=== PATIENT | male | born 1980 | race Caucasian/White ===

== ENCOUNTER 2016-11-17 23:05 | Emergency (ER) | payer SELFPAY ==
[2016-11-17 23:18] VITALS: BP 137/94; PULSE 83; TEMP 97.7; BMI 25.6
--- NOTE | 2016-11-18 00:09 | PDOC ---
History of Present Illness - General History Source: Patient, Dam Tender Assistant Used Exam Limitations: Language Barrier - History of Present Illness Initial Comments: 11/18/16 23:35 The patient is a 36 year old male, with no significant past medical history, who presents to the emergency department with epigastric stomach pain for approx. two months that felt progressively worse today s/p lifting at work. The patient describes the pain as mild when not moving or lifting and moderate with exertion. The patient reports taking natural herbal medications for the pain and reports mild relief. He denies any recent chest pain or shortness of breath. He denies any recent fevers, chills, headache or dizziness. He denies any recent nausea, vomit, diarrhea or constipation. Allergies: NKA Past surgical history: None reported. Social History: Nonsmoker. Denies EtOH use (patient reports stopping alcohol use approx. one year ago). Denies recreational drug use. Primary Care Physician: Patient states he does not have a PCP <Ramana Casey - Last Filed: 11/18/16 01:07> <Graeme Carias - Last Filed: 11/18/16 02:15> - General Chief Complaint: Pain Stated Complaint: ABD PAIN Time Seen by Provider: 11/17/16 23:35 Past History <Ramana Caesy - Last Filed: 11/18/16 01:07> - Psycho/Social/Smoking Cessation Hx Anxiety: No Suicidal Ideation: No Smoking History: Never smoked Have you smoked in the past 12 months: No Information on smoking cessation initiated: No Hx Alcohol Use: No Drug/Substance Use Hx: No Substance Use Type: None <Graeme Carias - Last Filed: 11/18/16 02:15> - Past Medical History Allergies/Adverse Reactions: Allergies Allergy/AdvReac Type Severity Reaction Status Date / Time No Known Allergies Allergy Verified 06/15/15 22:31 Home Medications: Ambulatory Orders NK [No Known Home Medication] 11/18/16 Review of Systems - Review of Systems Comments:: 11/18/16 23:35 CONSTITUTIONAL: No fever, no chills, no fatigue EYES: No visual changes ENT: No ear pain, no sore throat CARDIOVASCULAR: No chest pain, no palpitations RESPIRATORY: No cough, no SOB GI: +Epigastric pain. No nausea, no vomiting, no constipation, no diarrhea GENITOURINARY: No dysuria, no frequency, no hematuria MUSKULOSKELETAL: No backpain, no joint pain, no myalgias SKIN: No rash NEURO: No headache <Ramana Casey - Last Filed: 11/18/16 01:07> *Physical Exam - Vital Signs Last Vital Signs Temp Pulse Resp BP Pulse Ox 97.7 F 83 18 137/94 97 11/17/16 23:15 11/17/16 23:15 11/17/16 23:15 11/17/16 23:15 11/17/16 23:15 - Physical Exam Comments: 11/18/16 23:35 CONSTITUTIONAL: Well-appearing; well-nourished; in no apparent distress HEAD: Normocephalic; atraumatic EYES: PERRL; EOM intact ENMT: External appears normal; normal oropharynx NECK: Supple; non-tender; no cervical lymphadenopathy CARD: Normal S1, S2; no murmurs, rubs, or gallops RESP: Normal chest excursion with respiration; breath sounds clear and equal bilaterally; no wheezes, rhonchi, or rales ABD: +Right upper quadrant tenderness. +Mild epigastric pain. EXT: Normal ROM in all four extremities; non-tender to palpation; distal pulses intact SKIN: Warm, dry, no rash NEURO: No focal neurological deficiencies. <Ramana Casey - Last Filed: 11/18/16 01:07> - Vital Signs Last Vital Signs Temp Pulse Resp BP Pulse Ox 97.7 F 83 18 137/94 97 11/17/16 23:15 11/17/16 23:15 11/17/16 23:15 11/17/16 23:15 11/17/16 23:15 <Graeme Carias - Last Filed: 11/18/16 02:15> ED Treatment Course - LABORATORY CBC & Chemistry Diagram: 11/18/16 01:05 11/18/16 01:05 <Graeme Carias - Last Filed: 11/18/16 02:15> Medical Decision Making - Medical Decision Making 11/18/16 02:13 Patient is well-appearing 36-year-old male who presents with atraumatic epigastric and right upper quadrant pain for the past several months that is exacerbated by heavy lifting and relieved by herbal supplements. In the ER, patient is awake and alert, with minimal epigastric discomfort on deep palpation. Miles's sign is negative. Vital signs are normal and stable. Patient is afebrile. CBC/CMP/lipase are within normal limit. Patient is completely asymptomatic after administration of Zantac and Maalox. I do not suspect pancreatitis or acute cholecystitis. Patient will be discharged with medical clinic follow-up and Zantac by mouth twice a day for the next 2 weeks. <Graeme Carias - Last Filed: 11/18/16 02:15> *DC/Admit/Observation/Transfer - Attestations Scribe Attestion: 11/18/16 01:19 Documentation prepared by Ramana Casey, acting as medical accounts receivable specialist for Graeme Carias MD. <Ramana Casey - Last Filed: 11/18/16 01:07> - Attestations Physician Attestion: 11/18/16 02:12 The documentation was prepared by the scribe under my direct supervision. I have reviewed the documentation which correctly represents the findings, medical decision-making and critical action taken by me. <Graeme Carias - Last Filed: 11/18/16 02:15> Diagnosis at time of Disposition: Abdominal pain Qualifiers: Abdominal location: epigastric Qualified Code(s): R10.13 - Epigastric pain - Discharge Dispostion Disposition: HOME Condition at time of disposition: Stable - Referrals Referrals: [facility] [Provider Group] - Patient Instructions Printed Discharge Instructions: DI for Epigastric Pain Additional Instructions: Take Zantac-150 mg twice daily for the next 2 weeks. Follow up with medicine clinic. Return immediately for severe pain, fever, vomiting, rectal bleeding. Print Language: BRAZILIAN
[2016-11-18] MEDS ORDERED: MAG HYDROX/AL HYDROX/SIMETH 30 ML UNIT-DOSE CUP PO ONE (00:56)
[2016-11-18] MEDS ORDERED: FAMOTIDINE 20 MG/50 ML IVPB 50 ML IVPB ONE (00:56)
[2016-11-18] MEDS ORDERED: RANITIDINE HCL 150 MG TABLET (FP) ONE (01:01)
[2016-11-18] MEDS ORDERED: MAG HYDROX/AL HYDROX/SIMETH 30 ML UNIT-DOSE CUP ONE (01:01)
[2016-11-18] MEDS ORDERED: RANITIDINE HCL 150 MG TABLET (FP) PO ONE (01:11)
[2016-11-18 01:47] LABS: BASOPHIL 0.7 % (0-2.0); EOSINOPHIL 5.2 % (0-4.5); MCH 33.3 pg (25.7-33.7); MCHC 35.3 g/dl (32.0-35.9); MEAN CELL VOLUME 94.4 fl (80-96); MEAN PLT VOLUME 9.3 fl (7.5-11.1); NEUTROPHILS 60.5 % (42.8-82.8); PLATELET COUNT 218 K/MM3 (134-434); RDW 12.9 % (11.9-15.9); WHITE BLOOD COUNT 4.9 K/mm3 (4.0-10.0)
[2016-11-18 01:54] LABS: ALK PHOS 126 U/L (45-117); ANION GAP 10 (8-16); BILIRUBIN,TOTAL 0.5 mg/dL (0.2-1.0); CALCIUM 8.7 mg/dL (8.5-10.1); CO2 24 mmol/L (21-32); CREATININE 0.7 mg/dL (0.7-1.3); GLUCOSE,RANDOM 108 mg/dL (74-106); SGOT/AST 29 U/L (15-37); SGPT/ALT 51 U/L (12-78); TOT PROT 7.5 g/dl (6.4-8.2)
== END 2016-11-18 03:10 | disposition home or self-care (01) ==
LOC: JER 23:05 → SUPCPDRO 23:05 → JER 11-18 03:10
PROC: 3E033GC Introduction of Other Therapeutic Substance into Peripheral Vein, Percutaneous Approach (ICD-10-PCS; principal; 2016-11-17)
DX: R10.13 Epigastric pain (principal)
CPT/HCPCS: 36415; 80053; 83690; 85025; 99282-25

== ENCOUNTER 2016-11-29 22:55 | Emergency (ER) | payer SELFPAY ==
[2016-11-29 22:59] VITALS: BP 140/88; PULSE 85; TEMP 98.2; BMI 29.2
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
[2016-11-30] MEDS ORDERED: IBUPROFEN 400 MG TABLET (FP) PO ONE ×2 (00:55→01:32)
[2016-11-30] MEDS ORDERED: LACTULOSE 20 GM/30 ML UDC (FOR ORAL USE ONLY) PO ONE (03:23)
[2016-11-30] MEDS ORDERED: LACTULOSE 20 GM/30 ML UDC (FOR ORAL USE ONLY) ONE (03:29)
== END 2016-11-30 03:33 | disposition home or self-care (01) ==
LOC: JER 22:55
DX: K59.00 Constipation, unspecified (principal)
CPT/HCPCS: 74020-TC; 99282-25

== ENCOUNTER 2020-01-07 21:10 | Emergency (ER) | payer SELFPAY ==
[2020-01-07 21:15] VITALS: PULSE 74; TEMP 97.9; BMI 35.2
--- NOTE | 2020-01-07 21:17 | PDOC ---
Rapid Medical Evaluation Chief Complaint: Pain, Acute Time Seen by Provider: 01/07/20 21:16 Medical Evaluation: Allergies Allergy/AdvReac Type Severity Reaction Status Date / Time No Known Allergies Allergy Verified 01/02/20 21:28 Vital Signs Temp Pulse Resp BP Pulse Ox 97.9 F 74 19 122/1 L 97 01/07/20 21:12 01/07/20 21:12 01/07/20 21:12 01/07/20 21:12 01/07/20 21:12 01/07/20 21:16 CC: post neck pian x 1 day, denies injury, here a few days ago and given flexeril Exam: FROM of neck, no rash or mass Plan: cerv xray 01/07/20 21:18 Discharge Disposition - Diagnosis Neck pain - Referrals - Patient Instructions - Post Discharge Activity
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
[2020-01-07 21:29] VITALS: BP 122/81
[2020-01-07] MEDS ORDERED: KETOROLAC TROMETHAMINE 60 MG/2 ML VIAL IM ONE (21:59)
[2020-01-07] MEDS ORDERED: KETOROLAC TROMETHAMINE 60 MG/2 ML VIAL ONE (22:04)
--- NOTE | 2020-01-07 22:10 | PDOC ---
History of Present Illness - General Chief Complaint: Pain, Acute Stated Complaint: NECK PAIN Time Seen by Provider: 01/07/20 21:16 - History of Present Illness Initial Comments: 01/07/20 22:07 39-year-old male never followed up with subspecialist for neck pain no radicular symptoms presents for further evaluation tonight. Past History - Medical History Allergies/Adverse Reactions: Allergies Allergy/AdvReac Type Severity Reaction Status Date / Time No Known Allergies Allergy Verified 01/02/20 21:28 Home Medications: Ambulatory Orders Cyclobenzaprine HCl [Flexeril 10 mg] 10 mg PO TID PRN 7 Days #21 tablet 01/02/20 Ibuprofen [Ibu] 600 mg PO TID 10 Days #30 tablet 01/02/20 COPD: No - Psycho-Social/Smoking History Smoking History: Never smoked Have you smoked in the past 12 months: No - Substance Abuse Hx (Audit-C & DAST Scrn) How often the patient has a drink containing alcohol: Never Score: In Men: 4 or > Positive; In Women: 3 or > Positive: 0 Screen Result (Pos requires Nsg. Audit-10AR): Negative In the last yr the pt used illegal drug/Rx for NonMed reason: No Score: Yes response is considered Positive: 0 Screen Result (Positive result requires Nsg. DAST-10): Negative Review of Systems - Review of Systems Constitutional: No: Fever Musculoskeletal: Yes: Neck Pain *Physical Exam - Vital Signs Last Vital Signs Temp Pulse Resp BP Pulse Ox 97.9 F 74 19 122/81 97 01/07/20 21:12 01/07/20 21:12 01/07/20 21:12 01/07/20 21:12 01/07/20 21:12 - Physical Exam 01/07/20 22:07 Cervical spine skin color and temperature normal range of motion is slightly limited. There is no midline tenderness. Mild bilateral paracervical musculature spasm and tenderness. 5 out of 5 strength bilateral upper extremities without gross sensorimotor deficits neurovascular intact. Medical Decision Making - Medical Decision Making 01/07/20 22:07 Motrin sent to pharmacy patient still has Flexeril. He will follow-up with orthopedics I have reviewed the pathophysiology with the patient. They are in agreement with the treatment plan all questions were answered to their satisfaction. Understanding for follow-up without fail was also conveyed to the patient. Again they are in agreement. 01/07/20 22:09 Patient has enough medicine I have reviewed his chart from prior visit I will have him follow-up with Ortho. I will advise supplementation with Tylenol 01/07/20 22:10 Patient states he did not take any medication today Toradol given in the emergency room. Discharge - Discharge Information Problems reviewed: Yes Clinical Impression/Diagnosis: Neck pain Condition: Stable Disposition: HOME - Admission No - Follow up/Referral Referrals: Jarrett Amaya DO [Staff Physician] - - Patient Discharge Instructions Additional Instructions: Continue your medication as directed. You may also add Tylenol for pain. Return to the emergency room for worsening symptoms and without fail follow-up with orthopedic surgery in 1 to 2 days for further evaluation and treatment options. Regrese a la davi de emergencias por empeoramiento de los sntomas y sin falta seguimiento con ciruga ortopdica en 1 a 2 tidwell. Contine con dwain medicamentos segn las indicaciones y tambin puede agregar Tylenol segn las indicaciones. - Post Discharge Activity
== END 2020-01-07 22:13 | disposition home or self-care (01) ==
LOC: JERFT 21:10 → JER 21:10 → JERFT 22:13
PROC: 3E0233Z Introduction of Anti-inflammatory into Muscle, Percutaneous Approach (ICD-10-PCS; principal; 2020-01-07)
DX: M54.2 Cervicalgia (principal)
CPT/HCPCS: 72050-TC-FY; 99284-25

== ENCOUNTER 2020-04-23 20:54 | Emergency (ER) | payer OTHER ==
[2020-04-23 20:59] VITALS: BP 134/90; PULSE 72; TEMP 97; BMI 33.2
[2020-04-23] MEDS ORDERED: LIDOCAINE 5% TOPICAL PATCH TP ONE (23:36)
[2020-04-23] MEDS ORDERED: KETOROLAC TROMETHAMINE 30 MG/1 ML VIAL IM ONE (23:36)
[2020-04-23] MEDS ORDERED: KETOROLAC TROMETHAMINE 30 MG/1 ML VIAL ONE (23:50)
[2020-04-23] MEDS ORDERED: LIDOCAINE 5% TOPICAL PATCH ONE (23:50)
== END 2020-04-23 23:45 | disposition left against medical advice (07) ==
LOC: JER 20:54
DX: M54.2 Cervicalgia (principal)
CPT/HCPCS: 99283-25

== ENCOUNTER 2020-05-28 09:25 | Day surgery (SDC) | payer OTHER ==
[2020-05-28 09:55] VITALS: BMI 31.8
[2020-05-28] MEDS ORDERED: BUPIVACAINE HCL/PF 0.5% (5MG/ML) 10 ML VIAL IJ ONE (12:23)
[2020-05-28] MEDS ORDERED: IOHEXOL 180 MG/1 ML ML IJ ONE (12:23)
[2020-05-28] MEDS ORDERED: LIDOCAINE HCL 1% PRESERVATIVE FREE - 30ML VIAL IJ ONE (12:23)
[2020-05-28 13:04] VITALS: BP 127/79; PULSE 57; TEMP 97.7
== END 2020-05-28 13:00 | disposition home or self-care (01) ==
LOC: JASU-SURG 09:25 → MERGE 16:30
PROVIDERS: ATTEND Pain Medicine Pain Medicine
PROC: 3E0T33Z Introduction of Anti-inflammatory into Peripheral Nerves and Plexi, Percutaneous Approach (ICD-10-PCS; 2020-05-28)
PROC: BR14YZZ Fluoroscopy of Cervical Facet Joint(s) using Other Contrast (ICD-10-PCS; 2020-05-28)
PROC: 3E0T3BZ Introduction of Anesthetic Agent into Peripheral Nerves and Plexi, Percutaneous Approach (ICD-10-PCS; principal; 2020-05-28 11:00)
DX: M47.812 Spondylosis without myelopathy or radiculopathy, cervical region (principal)
CPT/HCPCS: 76000-TC-FY